=== PATIENT | male | born 1990 ===

== ENCOUNTER 2021-01-27 02:32 | Emergency (ER) | payer SELFPAY ==
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
== END 2021-01-27 03:05 | disposition home or self-care (01) ==
LOC: MW.ED 02:32
DX: Z02.89 Encounter for other administrative examinations (principal)
CPT/HCPCS: 99283